=== PATIENT | male | born 1995 | race African-American/Black ===

== ENCOUNTER 2025-06-10 17:38 | Emergency (ER) | payer SELFPAY ==
[2025-06-10 17:39] VITALS: BP 123/62; PULSE 79; RESP 18; TEMP 36.1; O2SAT 100; BMI 26.8
--- NOTE | 2025-06-10 17:45 | EX.ED.UPPERE ---
HPI History of Present Illness Chief Complaint: Upper Extremity Injury PFSH PFSH Allergy/AdvReac Type Severity Reaction Status Date / Time shellfish derived Allergy Severe Anaphylaxis Verified 06/10/25 17:40 tomato Allergy Intermediate Hives Verified 06/10/25 17:40 Social History Smoking Status: Never smoker EXAM Physical Exam Const Vital Signs: 06/10/25 17:39 Temperature 97 F L Temperature Source Temporal Pulse Rate 79 Respiratory Rate 18 Blood Pressure 123/62 H Blood Pressure Mean 82 Pulse Ox 100 Oxygen Delivery Method Room Air [facility] [place] Narrative Medical decision making narrative: HISTORY OF PRESENT ILLNESS: Chief complaint: Right hand pain 20-year-old male presents with right hand pain after punching a wall. REVIEW OF SYSTEMS: Pertinent positives: Hand pain Pertinent negatives: PHYSICAL EXAM: Nursing triage notes reviewed, Vital signs reviewed Constitutional: please see mdm Extremities: No edema, no obvious deformities, TTP over base of first digit. Neuro: Intact 5/5 strength with ok sign (median), intact finger abduction (ulnar) intact wrist extension (radial n). Intact sensation in the radial, ulnar, and median nerve distributions. Skin: No rash or lesions noted MEDICAL DECISION MAKING: Chief Complaint: please see HPI [facility] Narrative: Patient was initially hemodynamically stable, afebrile and nontoxic-appearing. Exam with TTP over right first digit. I considered the following differential diagnosis: Hand fracture, dislocation, contusion I obtained an x-ray of the involved extremity to further determine if the patient was suffering from a life-threatening etiology. Initially treat the patient with ice and oral ibuprofen ALL IMAGES (IF OBTAINED) HAVE BEEN PERSONALLY REVIEWED AND INTERPRETED BY MYSELF. The x-ray of the patient's right hand was read reviewed personally myself showed no evidence of obvious bony injury. The radiologist agreed by interpretation. Patient is likely suffering from a hand contusion. Will give thumb spica splint given TTP over base of first digit. Concern for possible occult scaphoid fracture. Will recommend the patient receive a repeat x-ray in approximately close primary care physician. The patient and/or family, caregivers express understanding. The patient and/or family, caregivers agrees with the plan. Shared decision making: I will have a discussion with the patient and or visitors regarding risk/benefits of further testing or admission. They will be made aware of of the risk/benefits inherent in this decision they will be given the opportunity to voice understanding. Total critical care time today provided was at least 0 minutes. This excludes separately billable procedures. Critical care time (if documented) is secondary to the patient having high probability of clinically significant/life threatening deterioration in the patient's condition which required my urgent intervention. Impression: 1. Hand contusion Dispo: Discharge home This note was generated with [employer] dictation software. It may contain incorrect words, spelling, and punctuation that were not noted in review of the chart prior to signing. Discharge Plan Triage Chief Complaint: Upper Extremity Injury ED Provider: Beny Malone Dx/Rx/DC Orders Instructions: ED Hand Contusion Primary Care Provider: Care Physician,No Primary Referrals: Juan Rodarte MD [Med Staff - Active Staff, Family Practice] Care Physician,No Primary [Primary Care Provider, Medical] Activity Restrictions/Additional Instructions: Thank you for trusting us with your care today! Your x-ray did not show a broken bone. Given the tenderness over the base of your thumb there may be a hidden fracture. It is recommended you get a repeat x-ray in approxi-1 week. Please call your primary care physician to schedule this as an outpatient. You do not have a primary care physician please call family practice patient has been provided 40 Please take Tylenol (2 pills, 650 mg), ibuprofen (2 pills, 400 mg) every 6 hours as needed for pain and fever control. Please return to the emergency department if your symptoms change or worsen. Please follow with your primary care physician for further outpatient evaluation and management. Print Language: Hungarian Disposition Disposition: Home, Self Care
--- NOTE | 2025-06-10 17:51 | RAD_ITS ---
PROCEDURE: RIGHT HAND MIN 3 VIEWS 06/10/2025 REASON FOR EXAM: PAIN TECHNIQUE: Procedure Code: MITCH Modality: DX Procedure: HAND MIN 3 VIEWS COMPARISON: None. FINDINGS: No acute fracture or dislocation. Alignment is anatomic. Preserved joint spaces. No aggressive osseous lesion. No marked soft tissue swelling or radiopaque foreign body. RAD/Hand Min 3 Views IMPRESSION: No acute fracture or dislocation. Reading Location: [id number]
[2025-06-10 18:33] VITALS: BP 117/58; PULSE 62; RESP 18; TEMP 36.1; O2SAT 98
== END 2025-06-10 18:34 | disposition home or self-care (01) ==
PROVIDERS: Emergency Provider Emergency Medicine; Visit Provider Emergency Medicine
DX: S60.221A Contusion of right hand, initial encounter (principal); W22.09XA Striking against other stationary object, initial encounter
CPT/HCPCS: 73130; 99283